=== PATIENT | female | born 1945 | race Caucasian/White ===

== ENCOUNTER 2022-06-19 10:55 | Emergency (ER) | payer OTHER ==
[~2022-06-19] VITALS: Ht 147.3 cm; Wt 60.3 kg
[2022-06-19] MEDS ORDERED: MEDROL4 MG PO (11:47)
[2022-06-19] MEDS ORDERED: TYLENOL EXTRA500 MG PO (11:48)
[2022-06-19] MEDS ORDERED: ZESTRIL20 MG PO (11:48)
[2022-06-19] MEDS ORDERED: FAMOTIDINE20 MG PO (11:48)
[2022-06-19] MEDS ORDERED: NORVASC5 MG PO (11:49)
[2022-06-19] MEDS ORDERED: OXYCODONE HCL5 MG PO (11:49)
[2022-06-19] MEDS ORDERED: LEVOTHYROXINE50 MC1 PO (11:50)
--- OUTSIDE RECORDS SUMMARY | 2022-06-19 14:44 | XMS ---
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 E.D. VISIT COUNT (12 MO.) 2 [facility] TOTAL 5 NOTE: Visits indicate total known visits. ED/UCC VISIT TRACKING (12 MO.) 06/19/2022 10:56 [facility] [place] TYPE: Emergency COMPLAINT: - LOWER BACK INJ [facility] DIAGNOSES: - Chest pain, unspecified - Urinary tract infection, site not specified - Headache, unspecified - CP - Medic 481 - Chest Pain 07/31/2021 14:15 [facility] [place] TYPE: Emergency COMPLAINT: - ABD PAIN 07/14/2021 14:40 [facility]raw[facility] [place] TYPE: Emergency COMPLAINT: - SYNCOPE/ POSS SEIZURE 07/06/2021 14:14 [facility] TYPE: Emergency DIAGNOSES: - Vomiting - Nausea INPATIENT VISIT TRACKING (12 MO.) 07/14/2021 22:32 [facility] [place] TYPE: General Medicine DIAGNOSES: - NSTEMI - Paroxysmal atrial fibrillation - Polymyositis, organ involvement unspecified - Other malaise [email or web address]
== END 2022-06-19 14:24 | disposition home or self-care (01) ==
LOC: ED 10:55 → EDBD 10:56 → ED 14:24
DX: S32.029A Unspecified fracture of second lumbar vertebra, initial encounter for closed fracture (principal); Z88.1 Allergy status to other antibiotic agents; W18.30XA Fall on same level, unspecified, initial encounter
CPT/HCPCS: 36415; 70450; 72128; 72131; 80053; 85025; 96361; 96374; 99284-25; J1170; J7040